=== PATIENT | female | born 1945 | race Caucasian/White ===

== ENCOUNTER 2023-10-07 08:10 | Outpatient (OUT) | payer MEDICARE, BC, SELFPAY ==
--- NOTE | 2023-10-07 09:46 | CA_ITS ---
Patient Name: ELISEO ENGLAND MR#: [id number] : 1945 Exam Date: 10/07/2023 Ordering Doctor: DR DONAL CLIFFORD ECHOCARDIOGRAM REPORT PROCEDURE: CA ECHO DOPPLER COMPLETE INDICATIONS: Pulmonary embolism COMPARISON: None. DESCRIPTION: COMPLETE ECHOCARDIOGRAM Real-time transthoracic echocardiography with 2D, M-mode, spectral and color flow Doppler performed. QUALITY: Technical quality was good. LEFT VENTRICLE: Normal chamber size. Normal left ventricular wall thickness. LV EF: Global left ventricular systolic function is normal. Calculated left ventricular ejection fraction is 68%. No wall motion abnormalities. DIASTOLIC: Diastolic function is indeterminate. ATRIAL SEPTUM: Inadequately seen. LEFT ATRIUM: Moderate dilatation. RIGHT ATRIUM: Mild dilatation. RIGHT VENTRICLE: Normal chamber size. Normal right ventricular systolic function. TRICUSPID VALVE: Normal mobility and thickness. No stenosis with trivial regurgitation. Mild pulmonary hypertension. RVSP 44mmHg MITRAL VALVE: Normal mobility and thickness. No evidence of mitral valve stenosis. Mild mitral annular calcification. Trivial mitral regurgitation. AORTIC VALVE: Normal trileaflet appearance. Thickened aortic valve. Normal leaflet mobility. No evidence of aortic valve stenosis. No aortic regurgitation. AORTIC ROOT: Normal diameter and appearance. PULMONIC VALVE: Normal thickness and mobility. No stenosis. No regurgitation. PERICARDIUM: Trivial pericardial effusion. IVC: Collapses with inspirations. CONCLUSION: 1. Global left ventricular systolic function is normal; visually estimated ejection fraction is 60 to 65% 2. Normal right ventricular size and systolic function 3. Biatrial enlargement 4. Diastolic function is indeterminate 5. Mildly elevated right ventricular systolic pressure; RVSP 44 mmHg 6. Trivial pericardial effusion Adult Echocardiography Procedure Report Left Ventricle LVEDD (3.7 - 5.6 cm): 3.78 cm LVESD (2.2 - 4.0 cm): 2.43 cm LVIVS thickness (0.6 - 1.2 cm): 0.96 cm LVPW thickness (0.5 - 1.0 cm): 1.00 cm e': 0.09 m/s E - e': 7.07 LVOT Max Gradient: 2.62 mm[Hg] LVOT Area (cm2): 0.81 m/s Peak Velocity (LVOT): 0.81 m/s Mean Velocity (LVOT): 0.53 m/s LVOT Diameter 1.83 cm Left Ventricular Ejection Fraction: 68.03 % Left Atrium LA Volume Index (2D A2C): 55.26 ml/m2 Left Atrium Systolic Dimension: 3.23 cm Mitral Valve MV E to A Ratio: 1.09 Mitral Valve A-Wave Peak Velocity: 0.60 m/s Mitral Valve E-Wave Peak Velocity: 0.65 m/s Right Ventricle RV Internal Diastolic Dimension: 3.62 cm Aorta AO Root Diam: 2.98 cm Ascending Ao Diam: 3.27 cm Aortic Valve AoV Area (Peak Kana): 1.50 cm2, 1.50 cm2 AoV Area (VTI): 1.85 cm2, 1.85 cm2 Peak Velocity(Antegrade Flow): 1.42 m/s Peak Gradient(Antegrade Flow): 8.07 mm[Hg] Mean Velocity(Antegrade Flow): 0.90 m/s Mean Gradient(Antegrade Flow): 3.82 mm[Hg] Velocity Time Integral: 29.26 cm Tricuspid Valve Peak Velocity (Regurgitant Flow): 2.28 m/s, 3.06 m/s, 3.21 m/s Pulmonic Valve Mean Gradient: 2.09 mm[Hg], 1.99 mm[Hg] Mean Velocity: 0.68 m/s, 0.68 m/s Peak Velocity: 0.93 m/s Peak Gradient: 3.83 mm[Hg], 3.11 mm[Hg] Right Atrium Right Atrium Systolic Pressure: 60.58 ml, 60.58 ml Dictated by: Vikram Rivera M.D. on 10/07/2023 at 14:47 Approved by: Vikram Rivera M.D. on 10/07/2023 at 14:50
== END 2023-10-07 08:11 | disposition home or self-care (01) ==
LOC: CARD 08:16
PROVIDERS: PCP Internal Medicine; Visit Provider Internal Medicine
DX: I26.99 Other pulmonary embolism without acute cor pulmonale (principal)
CPT/HCPCS: 93306; 93356